=== PATIENT | female | born 1995 | race Caucasian/White ===

== ENCOUNTER 2018-02-28 21:00 | Emergency (ER) | payer OTHER ==
[~2018-02-28] VITALS: Ht 154.9 cm; Wt 42.6 kg
[2018-02-28 21:11] VITALS: Ht 154.9 cm; Wt 42.6 kg
[2018-02-28 23:29] VITALS: BP 100/70
== END 2018-02-28 23:29 | disposition home or self-care (01) ==
LOC: ED 21:00
DX: F41.9 Anxiety disorder, unspecified (principal); F32.9 Major depressive disorder, single episode, unspecified

== ENCOUNTER 2018-12-18 14:34 | Emergency (ER) | payer OTHER ==
[~2018-12-18] VITALS: Ht 154.9 cm; Wt 48.6 kg
[2018-12-18 14:39] VITALS: Ht 154.9 cm; Wt 48.6 kg
[2018-12-18 15:02] VITALS: BP 114/75
== END 2018-12-18 15:02 | disposition home or self-care (01) ==
LOC: ED 14:34
DX: L02.01 Cutaneous abscess of face (principal)

== ENCOUNTER 2018-12-20 14:30 | Emergency (ER) | payer OTHER ==
[~2018-12-20] VITALS: Ht 157.5 cm; Wt 48.5 kg
[2018-12-20 14:33] VITALS: BP 113/62; Ht 157.5 cm; Wt 48.5 kg
== END 2018-12-20 16:23 | disposition home or self-care (01) ==
LOC: ED 14:30
DX: L02.01 Cutaneous abscess of face (principal)

== ENCOUNTER 2018-12-23 04:01 | Emergency (ER) | payer OTHER ==
[~2018-12-23] VITALS: Ht 154.9 cm; Wt 49.4 kg
[2018-12-23 04:08] VITALS: Ht 154.9 cm; Wt 49.4 kg
[2018-12-23 04:58] VITALS: BP 1406/66
== END 2018-12-23 04:58 | disposition home or self-care (01) ==
LOC: ED 04:01
DX: L02.01 Cutaneous abscess of face (principal)

== ENCOUNTER 2019-02-26 16:19 | Emergency (ER) | payer OTHER ==
[~2019-02-26] VITALS: Ht 154.9 cm; Wt 49.9 kg
[2019-02-26 16:23] VITALS: Ht 154.9 cm; Wt 49.9 kg
[2019-02-26 16:43] LABS: BASOPHIL % 0.7 % (0-2); PLATELET COUNT 377 x10^3mcL (130-400); RED CELL DISTRIBUTION WIDTH 12.5 % (11.5-14.5)
[2019-02-26 16:54] LABS: CALCIUM 9.4 mg/dL (8.5-10.1); CARBON DIOXIDE 28.3 mmol/L (21-32); CHLORIDE SERUM 104 mmol/L (98-107); CREATININE SERUM 0.6 mg/dL (0.6-1.0); GFR1 > 60 mL/min; GLUCOSE SERUM 99 mg/dL (74-106); POTASSIUM SERUM 3.9 mmol/L (3.5-5.1); SODIUM SERUM 140 mmol/L (136-145)
[2019-02-26 16:59] LABS: ALBUMIN 4.2 g/dL (3.4-5.0); ALKALINE PHOSPHATASE 87 U/L (46-116); ALT/SGPT 33 U/L (14-59); AST/SGOT 15 U/L (15-37); BILIRUBIN TOTAL 0.29 mg/dL (0.20-1.00); LIPASE 102 IU/L (73-393); TOTAL PROTEIN, SERUM 8.2 g/dL (6.4-8.2)
[2019-02-26 17:57] VITALS: BP 101/64
== END 2019-02-26 18:09 | disposition home or self-care (01) ==
LOC: ED 16:19
DX: O23.41 Unspecified infection of urinary tract in pregnancy, first trimester (principal); Z3A.00 Weeks of gestation of pregnancy not specified
CPT/HCPCS: 36415